=== PATIENT | female | born 1935 ===

== ENCOUNTER → 2018-02-12 | Day surgery (SDC) | payer OTHER ==
[~2018-02-12] MED LIST: CLONAZEPAM0.5 MG PO; LIPITOR20 MG PO; LOTREL 5-10 MG1 CAP PO; MELATONIN1 M2 PO; PERCOCET 5-3251 EACH PO
== END | disposition home or self-care (01) ==
LOC: CIR.AMB 07:24
DX: D34 Benign neoplasm of thyroid gland (principal)